=== PATIENT | female | born 1985 | race Caucasian/White ===

== ENCOUNTER 2018-05-27 22:05 | Emergency (ER) | payer OTHER ==
[~2018-05-27] VITALS: Ht 175.3 cm; Wt 84.9 kg
[2018-05-27 22:42] LABS: HEMATOCRIT 41.9 % (36.0-46.0); HEMOGLOBIN 14.4 G/DL (11.9-15.5); MCHC 34.4 G/DL (30.0-36.0); MCV 93.1 FL (83-99); PLATELET COUNT 176 K/uL (156-360); RBC DIS.WIDTH-CV 13.4 % (11.8-14.6); RBC DIS.WIDTH-SD 45.4 % (39-53); WHITE BLOOD COUNT 9.6 K/uL (4.1-10.2)
[2018-05-27 22:53] LABS: CHLORIDE 108 mEq/L (99-109); SODIUM 141 mEq/L (136-147)
[2018-05-27 22:54] LABS: GLUCOSE 77 mg/dL (70-99)
[2018-05-27 22:58] LABS: GFR ESTIMATE (CALCULATED) > 59 mL/min/; SERUM ETHYL ALCOHOL < 10 mg/dL
[2018-05-27 23:00] LABS: UREA NITROGEN (BUN) 11 mg/dL (9-23)
[2018-05-27 23:01] LABS: SALICYLATE < 5.0 MG/DL (15-30)
[2018-05-27 23:02] LABS: ACETAMINOPHEN (TYLENOL) < 10 mcg/mL (10-30)
[2018-05-27 23:08] LABS: QUANTITATIVE HCG < 4.0 MIU/ML
[2018-05-28 02:21] LABS: AMPHETAMINE NEGATIVE (500 ng/mL); BARBITURATES NEGATIVE (200 ng/mL); BENZODIAZEPINES PRESUMPTIVE POSITIVE (150 ng/mL); BUPRENORPHINE NEGATIVE (10 ng/mL); COCAINE NEGATIVE (150 ng/mL); METHADONE NEGATIVE (200 ng/mL); METHAMPHETAMINE NEGATIVE (500 ng/mL); OPIATES (MORPHINE) NEGATIVE (100 ng/mL); OXYCODONE NEGATIVE (100 ng/mL); PHENCYCLIDINE PRESUMPTIVE POSITIVE (25 ng/mL); PROPOXYPHENE NEGATIVE (300 ng/mL); THC CANNABINOIDS NEGATIVE (50 ng/mL); TRICYCLIC ANTIDEPRESSANTS NEGATIVE (300 ng/mL)
[2018-05-28 05:07] LABS: BENZODIAZEPINES, URINE SCREEN POSITIVE (200 ng/mL)
[2018-05-28] MEDS ORDERED: LIDODERM 5% P1 PATCH TD (06:32)
[2018-05-28] MEDS ORDERED: ULTRAM50 MG PO (06:32)
[2018-05-28 07:01] VITALS: BP 119/74
== END 2018-05-28 07:03 | disposition home or self-care (01) ==
LOC: EME → EDBD 22:05 → EME 22:05
PROVIDERS: Emergency Medicine
DX: T40.991A Poisoning by other psychodysleptics [hallucinogens], accidental (unintentional), initial encounter (principal); Z87.898 Personal history of other specified conditions
CPT/HCPCS: 71045; 80048; 84702; 84999; 85027; 93005; G0480; J2060; J2310; J7030